=== PATIENT | female | born 1985 | race Caucasian/White ===

== ENCOUNTER 2021-03-04 09:50 | Emergency (ER) | payer OTHER, SELFPAY ==
[2021-03-04 09:58] VITALS: BP 133/96; PULSE 101; RESP 16; TEMP 36.4; O2SAT 99
--- NOTE | 2021-03-04 10:05 | ED.GENADULT ---
HPI - General Adult General Chief complaint: Upper Respiratory Infection Stated complaint: ear pain Time Seen by Provider: 03/04/21 10:05 Source: patient and RN notes reviewed Mode of arrival: ambulatory Limitations: no limitations History of Present Illness HPI narrative: 36-year-old female presents with complaints of sore throat and bilateral otalgia for the past 3-4 days. Jacklyn reports increasing symptoms daily. Sudafed, nose spray, and Tylenol taken last this morning with little relief. No high fevers, drooling, neck or throat swelling. Pain is bilateral. Hurts to swallow. No known exacerbation factors. No rhinorrhea. Nasal congestion. No voice change. No nausea, vomiting, or abdominal pain. Tolerating liquids well. Denies dyspnea, difficulty swallowing, jaw pain, dental pain, facial pain, foreign body sensation, tinnitus, dizziness, and rash. Remains active. The patient reports she was diagnosed with COVID-19 in March 2020. The patient reports she is not waiting for the results of a COVID-19 lab test. The patient reports she does not have chills, weakness, or fatigue. The patient reports she does not have a new or worsening cough. Denies chest pain. The patient reports she does not have any loss of taste or smell, and diarrhea. Denies recent traveling. Denies concerns for COVID-19 or exposures. At this time, the patient is not suspected of having COVID-19. Some parts of this dictation were generated by voice recognition software and may contain typographical and/or grammatical inaccuracies. Related Data Home Medications Medication Instructions Recorded Confirmed chlorpheniramine-pseudoephed tablet PO 03/04/21 [Allergy(pseudoephed-chlorphen)] [id number]-acetaminophen ml 03/04/21 [NyQuil] Allergies Allergy/AdvReac Type Severity Reaction Status Date / Time No Known Allergies Allergy Verified 03/05/21 09:53 Review of Systems Review of Systems: Narrative: CONSTITUTIONAL: Denies fever, chills, sweats. EYES: Denies visual changes, redness, discharge. ENT: Denies rhinorrhea. Complains of congestion, sore throat, bilateral otalgia. CARDIOVASCULAR: Denies chest pain, palpitations, edema. RESPIRATORY: Denies dyspnea, wheezing, cough. GASTROINTESTINAL: Denies abdominal pain, nausea, vomiting, diarrhea. SKIN: Denies rash or itching. MUSCULOSKELETAL: Denies acute back pain, joint pain, or myalgia. NEUROLOGIC: Denies numbness or focal weakness. PSYCHIATRIC: Denies anxiety or depression. All systems reviewed & are unremarkable except as noted in HPI and below. [facility] Past Medical History Medical History BMI 20.0-20.9, adult Diabetes Scar tissue Surgical History Surgical History History of cholecystectomy Family History Family History Father Acute myocardial infarction Mother Breast cancer Lymphoma Sibling No problems noted. Other Diabetes mellitus Social History Social History (Updated 03/10/21 @ 02:06 by RUTHIE Lizarraga) Smoking status: Never smoker Tobacco type: cigarettes Second hand tobacco smoke exposure: Yes Alcohol intake: current Substance use: never Substance use type: does not use Living arrangements: with family Occupation/Education: occupation Additional occupation/education comments: [employer] Gender identity (if verbalized by the patient): Female Sexual Orientation (if Verbalized by the Patient): Straight or Heterosexual Comments At time of signature, agree with the nurse past medical, surgical, social, and family history. There is no relevant family history pertinent to the presenting complaint. Exam Narrative: Exam Narrative: GENERAL: This is a well-nourished, well-developed patient, in no apparent distress. Speaks in full senten
== END 2021-03-04 10:46 | disposition home or self-care (01) ==
PROVIDERS: Emergency Provider Nurse Practitioner Family; PCP Family Medicine
DX: J02.9 Acute pharyngitis, unspecified (principal); H92.02 Otalgia, left ear; J35.8 Other chronic diseases of tonsils and adenoids; E11.9 Type 2 diabetes mellitus without complications
CPT/HCPCS: 87081; 87880; 99213; G0463

== ENCOUNTER 2021-04-28 17:26 | Emergency (ER) | payer OTHER, SELFPAY ==
[2021-04-28 17:37] VITALS: BP 140/110; PULSE 111; RESP 16; TEMP 36.4; O2SAT 99
== END 2021-04-28 17:55 | disposition left against medical advice (07) ==
PROVIDERS: Emergency Provider Nurse Practitioner; PCP Family Medicine
DX: Z53.21 Procedure and treatment not carried out due to patient leaving prior to being seen by health care provider (principal)
CPT/HCPCS: 99199

== ENCOUNTER 2021-04-28 18:16 | Emergency (ER) | payer OTHER, SELFPAY ==
--- NOTE | ~2021-04-28 | XR_ITS ---
EXAMINATION: XR chest 2V DATE: 04/28/2021 18:45 INDICATION: Chest tightness. Shortness of breath. Palpitations. TECHNIQUE: Frontal and lateral views of the chest were obtained. COMPARISON: None. FINDINGS: The chest demonstrates clear lungs without pneumonia, pleural effusion, or pneumothorax. Th e heart size is normal. Surgical clips in the right upper quadrant are likely from cholecystectomy. IMPRESSION: 1. No acute cardiopulmonary disease. Reviewed, dictated and finalized at location A.
--- NOTE | 2021-04-28 18:22 | ECG_ITS ---
Measurements Intervals Jacobson Rate: 111 P: 63 PA: 136 QRS: 80 QRSD: 89 T: 37 QT: 323 QTc: 439 Interpretive Statements SINUS TACHYCARDIA POSSIBLE LEFT ATRIAL ENLARGEMENT INCOMPLETE RIGHT BUNDLE BRANCH BLOCK BASELINE ARTIFACT- I, III, AVR, AVL, AVF ABNORMAL ECG Electronically Signed On 04-28-2021 19:05:55 CDT by Jerrod Rubio D.O.
[2021-04-28 18:36] LABS: Basophils Absolute Auto 0.1 K/mm3 (0.0-0.1); Basophils Percent Auto 0.4 % (0.2-1.2); Eosinophils Absolute Auto 0.3 K/mm3 (0-0.3); Eosinophils Percent Auto 2.4 % (0-4.4); Hematocrit 40.1 % (37.0-47.0); Hemoglobin 13.2 g/dL (12.0-15.0); Immature Granulocyte Absolute 0.04 K/mm3 (0.00-0.031); Immature Granulocyte Percent A 0.4 % (0-0.5); Lymphocytes Absolute Auto 4.23 K/mm3 (0.9-3.2); Lymphocytes Percent Auto 37.2 % (18.3-44.2); Mean Corpuscular HGB Conc 32.9 g/dl (32-36); Mean Corpuscular Hemoglobin 26.9 pg (26-34); Mean Corpuscular Volume 81.7 fl (80-100); Mean Platelet Volume 8.7 fl (7.4-10.4); Monocytes Absolute Auto 0.8 K/mm3 (0.1-0.6); Monocytes Percent Auto 6.7 % (2.6-8.5); Neutrophils Percent Auto 52.9 % (45.5-73.1); Platelet Count Result 493 k/mm3 (150-375); Red Blood Count 4.91 M/mm3 (4.2-5.4); Red Cell Distribution Width 13.1 % (11.5-14.5); White Blood Count 11.4 K/mm3 (4.5-10.0)
[2021-04-28 18:46] LABS: Anion Gap 16 mmol/L (8-16); Blood Urea Nitrogen 25 mg/dL (7-17); Calcium 9.9 mg/dL (8.4-10.2); Carbon Dioxide 21 mmol/L (22-30); Chloride 100 mmol/L (98-107); Estimated Glomerular Filt Rate > 60; Glucose 192 mg/dL (65-110); Potassium 3.9 mmol/L (3.4-5.0); Sodium 137 mmol/L (137-145)
[2021-04-28 18:47] LABS: Prothrombin Time 13.1 Seconds (11.1-14.7)
[2021-04-28 18:48] VITALS: BP 151/99; PULSE 109; RESP 16; TEMP 36.5; O2SAT 100
[2021-04-28 18:48] LABS: Partial Thromboplastin Time 30.1 SECONDS (22.3-36.8)
[2021-04-28 18:58] LABS: Troponin I < 0.012 ng/mL (0.000-0.034)
--- NOTE | 2021-04-28 20:29 | PC.NURSE ---
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
== END 2021-04-28 20:38 | disposition left against medical advice (07) ==
LOC: ANHED 20:35
PROVIDERS: Emergency Provider Emergency Medicine; PCP Family Medicine
DX: R00.2 Palpitations (principal)
CPT/HCPCS: 36415; 71046; 80048; 84484; 85025; 85610; 85730; 93005; 99199

== ENCOUNTER 2021-05-06 13:21 | Outpatient (CLI) | payer OTHER, SELFPAY ==
--- NOTE | 2021-05-11 16:29 | WPDHOLTEREM ---
Holter/Event Monitor Holter/Event Monitor Date of procedure: 05/06/21 Holter/Event Procedure: 24 Hr Holter Monitor Indications: Palpitations Conclusion: 1. 24 hour holter monitor on 05/06/21. 2. Underlying rhythm is sinus rhythm with sinus arrhythmia. HR range 53-140 bpm; average HR 93 bpm. 3. No premature supraventricular complexes. No supraventricular tachycardia. 4. No premature ventricular complexes. No ventricular tachycardia. 5. No sinoatrial or atrioventricular blocks. No significant pauses greater than 2 seconds. 6. No symptoms available for correlation.
== END 2021-05-06 13:22 | disposition home or self-care (01) ==
LOC: ANHCARD 13:22
PROVIDERS: PCP Family Medicine; Visit Provider Nurse Practitioner Family
DX: R00.2 Palpitations (principal)
CPT/HCPCS: 93225; 93226

== ENCOUNTER 2022-04-25 07:22 | Emergency (ER) | payer OTHER, SELFPAY ==
--- NOTE | ~2022-04-25 | XR_ITS ---
EXAMINATION: XR ankle LT min 3V DATE: 04/25/2022 07:57 INDICATION: Lateral left ankle pain post twisting injury TECHNIQUE: Anteroposterior, oblique, mortise, and lateral views of the left ankle were obtained. COMPARISON: None. FINDINGS: Bone alignment is normal. On the lateral projection there is a subtle small amorphous calcific densit y dorsal to the neck of the talus which could represent a distracted flake-like avulsion fracture. No other lesions suspicious for fracture identified. Joint spaces appear relatively preserved. No ankle joint effusion. IMPRESSION: 1. Likely small flake like avulsion fracture fragment arising from the dorsal neck of the talus. Reviewed, dictated and finalized at location A. IMPRESSION: 1. Likely small flake like avulsion fracture fragment arising from the dorsal n karoline of the talus.
[2022-04-25 07:23] VITALS: BP 142/90; PULSE 99; RESP 18; TEMP 36.3; O2SAT 100
--- NOTE | 2022-04-25 07:56 | ED.LOWEXIN ---
HPI - Extremity Injury (Lower) General Chief Complaint: Extremity Injury, Lower Stated Complaint: left ankle pain x 1 week Time Seen by Provider: 04/25/22 07:38 History of Present Illness HPI Narrative: Pt rolled left ankle about 9 days ago. Pt says it continues to swell up especially after being up on it during the day and she just wants to make sure it isn't broken. Related Data Allergies Allergy/AdvReac Type Severity Reaction Status Date / Time dapagliflozin [From [facility]] AdvReac Mild yeast Verified 04/25/22 07:22 infections Review of Systems Review of Systems: All systems reviewed & are unremarkable except as noted in HPI and below PMFSH Past Medical History Medical History BMI 20.0-20.9, adult BMI 21.0-21.9, adult COVID-19 Diabetes Scar tissue Surgical History Surgical History History of cholecystectomy Family History Family History Father Acute myocardial infarction Mother Breast cancer Lymphoma COVID-19 Sibling No problems noted. Other Diabetes mellitus Social History Social History Smoking status: Never smoker Second hand tobacco smoke exposure: Yes Alcohol intake: current Drinks per week: 0 Substance use: never Substance use type: does not use Additional living arrangements comments: Additional occupation/education comments: [employer] Gender identity (if verbalized by the patient): Female Sexual Orientation (if Verbalized by the Patient): Straight or Heterosexual Spiritual care concerns: No Agree to blood products: Yes Exam Const: General: healthy appearing and no acute distress Nutritional Appearance: well nourished Orientation/consciousness: patient oriented x3 Limitations: no limitations HENMT: Head: normal to inspection Skin: General skin exam: normal color Rashes: no rashes Neuro: General: patient oriented x3 and moves all extremities Extrem: Other: swlling and mild tenderness over lateral malleolus no proximal fibula or base of 5th MT pain Psych: Mental Status: mental status grossly normal Affect: normal affect Attitude: cooperative Course Vital Signs Vital signs: Vital Signs Temperature 97.4 F L 04/25/22 07:23 Pulse Rate 99 04/25/22 07:23 Respiratory Rate 18 04/25/22 07:23 Blood Pressure 142/90 H 04/25/22 07:23 Pulse Oximetry 100 04/25/22 07:23 Oxygen Delivery Room Air 04/25/22 07:23 Temperature 97.4 F L 04/25/22 07:23 Pulse Rate 89 04/25/22 09:00 Respiratory Rate 18 04/25/22 09:00 Blood Pressure 133/90 04/25/22 09:00 Pulse Oximetry 100 04/25/22 09:00 Oxygen Delivery Room Air 04/25/22 07:23 Discharge Plan Discharge Clinical Impression: Avulsion fracture of ankle Patient Disposition: Home, Self-Care Condition: Stable Instructions: Antibiotic Form, Ankle Fracture (DC), Ankle Sprain (DC) Prescriptions: No Action Januvia 50 mg tablet 50 mg PO DAILY Qty: 30 3RF fluconazole [Diflucan] 150 mg tablet 150 mg PO ONCE Qty: 2 2RF Rx Instructions: as a single dose hydroxyzine HCl 10 mg tablet 10 mg PO TID PRN (Reason: anxiety) Qty: 20 0RF metformin 500 mg tablet extended release 24 hr See Rx Instructions .ROUTE .COMPLEX Qty: 120 3RF Dose Instruction: TAKE 2 TABLETS BY MOUTH TWICE DAILY Rx Instructions: TAKE 2 TABLETS BY MOUTH TWICE DAILY omeprazole 40 mg capsule,delayed release(DR/EC) 40 mg PO DAILY Qty: 30 3RF Follow-up/Referrals: Roshan Templeton MD [Physician] - Butch Segundo MD [Primary Care Provider] - Stand Alone Forms: Work/School Release IP
[2022-04-25 08:33] VITALS: BP 139/96; PULSE 78; RESP 18; O2SAT 99
[2022-04-25 09:00] VITALS: BP 133/90; PULSE 89; RESP 18; O2SAT 100
== END 2022-04-25 09:00 | disposition home or self-care (01) ==
PROVIDERS: Emergency Provider Emergency Medicine; PCP Family Medicine
DX: S92.112A Displaced fracture of neck of left talus, initial encounter for closed fracture (principal); E11.9 Type 2 diabetes mellitus without complications; Z86.16 Personal history of COVID-19; X50.0XXA Overexertion from strenuous movement or load, initial encounter
CPT/HCPCS: 29515; 73610; 99284

== ENCOUNTER 2023-11-09 15:04 | Outpatient (CLI) | payer OTHER, SELFPAY ==
[2023-11-09 15:25] LABS: Basophils Absolute Auto 0.1 K/mm3 (0.0-0.1); Basophils Percent Auto 0.7 % (0.2-1.2); Eosinophils Absolute Auto 0.5 K/mm3 (0-0.3); Eosinophils Percent Auto 6.8 % (0-4.4); Hematocrit 34.1 % (37.0-47.0); Hemoglobin 10.2 g/dL (12.0-15.0); Immature Granulocyte Absolute 0.03 K/mm3 (0.00-0.031); Immature Granulocyte Percent A 0.4 % (0-0.5); Lymphocytes Absolute Auto 2.65 K/mm3 (0.9-3.2); Lymphocytes Percent Auto 34.8 % (18.3-44.2); Mean Corpuscular HGB Conc 29.9 g/dl (32-36); Mean Corpuscular Volume 73.7 fl (80-100); Mean Platelet Volume 8.6 fl (7.4-10.4); Monocytes Absolute Auto 0.5 K/mm3 (0.1-0.6); Neutrophils Absolute Auto 3.9 K/mm3 (1.3-6.7); Neutrophils Percent Auto 51.3 % (45.5-73.1); Platelet Count Result 550 k/mm3 (150-375); Red Blood Count 4.63 M/mm3 (4.2-5.4); Red Cell Distribution Width 16.2 % (11.5-14.5); White Blood Count 7.6 K/mm3 (4.5-10.0)
[2023-11-09 15:30] LABS: Anisocytosis 1+; Giant Platelets Present; Hypochromasia 1+; Microcytosis 1+ (NORMAL); Ovalocytes 1+; Platelet Estimate Increased (Adequate); Schistocytes None Seen
[2023-11-09 15:31] LABS: Poikilocytosis 1+
[2023-11-09 16:17] LABS: Erythrocyte Sedimentation Rate 14 mm/hr (0-20)
[2023-11-09 16:36] LABS: Iron 26 ug/dL (37-170)
[2023-11-09 16:41] LABS: Alanine Aminotransferase 17 U/L (6-35); Albumin Level 4.5 g/dL (3.5-5.1); Alkaline Phosphatase 72 U/L (38-126); Anion Gap 13 mmol/L (8-16); Aspartate Amino Transferase 23 U/L (14-36); Bilirubin,Total 0.3 mg/dL (0.2-1.3); Blood Urea Nitrogen 18 mg/dL (7-17); CRP < 0.5 mg/dL (<1.0); Calcium 9.3 mg/dL (8.4-10.2); Carbon Dioxide 19 mmol/L (22-30); Chloride 106 mmol/L (98-107); Estimated Glomerular Filt Rate > 60; Glucose 157 mg/dL (65-110); Potassium 3.6 mmol/L (3.4-5.0); Sodium 138 mmol/L (137-145)
[2023-11-09 16:52] LABS: Percent Iron Saturation 5 % (20-50)
== END 2023-11-09 15:05 | disposition home or self-care (01) ==
LOC: ANHLAB 15:06
PROVIDERS: Nurse Practitioner Family; PCP Family Medicine; Visit Provider Internal Medicine Hematology & Oncology
DX: D47.3 Essential (hemorrhagic) thrombocythemia (principal)
CPT/HCPCS: 36415; 80053; 82728; 83540; 83550; 85025; 85652; 86140

== ENCOUNTER 2024-01-23 16:09 | Outpatient (CLI) | payer OTHER, SELFPAY ==
--- NOTE | ~2024-01-23 | MM_ITS ---
EXAMINATION: MM screening brigida BI w patti HISTORY: Screening TECHNIQUE: Craniocaudal and mediolateral oblique 3-D tomosynthesis images were obtained and synthetic 2-D images were generated. CAD analysis was submitted and interpreted. COMPARISON: No prior mammogram is available for comparison at this institution. BREAST PARENCHYMAL COMPOSITION: Dense: The breasts are heterogeneously dense, which may obscure small masses FINDINGS: There is no evidence of suspicious mass, calcification, or architectural distortion to sugg est malignancy in either breast. There has been no suspicious interval change. IMPRESSION: 1. No mammographic evidence of malignancy. 2. Recommend routine screening mammography in one year. BI-RADS Category 1: Negative Reviewed, dictated and finalized at location B.
== END 2024-01-23 16:10 ==
PROVIDERS: PCP Nurse Practitioner; Visit Provider Nurse Practitioner
DX: Z12.31 Encounter for screening mammogram for malignant neoplasm of breast (principal)
CPT/HCPCS: 77063; 77067

== ENCOUNTER 2024-07-12 15:34 | Outpatient (CLI) | payer OTHER, SELFPAY ==
--- NOTE | ~2024-07-12 | XR_ITS ---
EXAMINATION:XR_CERV2-3V_CR DATE: 07/12/2024 16:21 INDICATION: Neck pain TECHNIQUE: AP, lateral and odontoid views of the cervical spine are provided. COMPARISON: None FINDINGS: Minimal reversal of the normal cervical lordosis. No spondylolisthesis or facet subluxation. Odontoid is intact. Normal atlantoaxial interval. Vertebral body heights are normal. Disc spaces are normal. Cervical facet and uncovertebral joints are unremarkable. Prevertebral soft tissues are normal. IMPRESSION: 1. Slight reversal of the normal cervical lordosis which could be positional or due to muscle spasm. Reviewed, dictated and finalized at location B. L PRODUCTS VIEWER
--- NOTE | ~2024-07-12 | XR_ITS ---
EXAMINATION: XR shoulder RT min 2V DATE: 07/12/2024 16:21 INDICATION: Radiculopathy to the right upper extremity TECHNIQUE: AP internally and externally rotated, AP oblique externally rotated and transscapular Y vi ews of the right shoulder were obtained. COMPARISON: None FINDINGS: 4 mm cephalad subluxation of the head of the right clavicle relative to the acromion without evident widening of the acromioclavicular joint space or the coracoclavicular interval. No fracture. Glenohum eral joint space is normal. Acromioclavicular joint space is normal. Soft tissues are unremarkable. V isualized portion of the lungs are clear. IMPRESSION: 4 mm cephalad subluxation of the head of the right clavicle relative to the acromion which could be d ue to physiologic laxity or age indeterminate acromioclavicular joint separation. There is however no widening of the acromioclavicular joint space or widening of the coracoclavicular interval to more s pecifically suggest the latter. Reviewed, dictated and finalized at location B. OR CLINICAL RESEARCH SCIENTIST IMPRESSION: 4 mm cephalad subluxation of the head of the right clavicle relative to the acr omion which could be due to physiologic laxity or age indeterminate acromioclav icular joint separation. There is however no widening of the acromioclavicular joint space or widening of the coracoclavicular interval to more specifically s uggest the latter.
--- NOTE | ~2024-07-12 | XR_ITS ---
HISTORY: M54.10 - Radiculopathy, site unspecified COMPARISON: None TECHNIQUE: 2 views of the right wrist were performed. FINDINGS: No acute fracture is identified. The carpal arcs are intact. Mild radiocarpal joint space narrowing with sclerosis of the distal radius is present. The remaining visualized joint spaces are otherwise preserved. Bone mineralization is age-appropriate. No significant soft tissue swelling is noted. No radiopaque foreign body is identified. IMPRESSION: Trace degenerative disease without acute fracture Reviewed, dictated and finalized at location A. TOUCH UP PAINTER
== END 2024-07-12 15:35 | disposition home or self-care (01) ==
PROVIDERS: PCP Family Medicine; Visit Provider Nurse Practitioner Adult Health
DX: M54.10 Radiculopathy, site unspecified (principal)
CPT/HCPCS: 72040; 73030; 73100

== ENCOUNTER 2024-07-17 15:11 | Outpatient (CLI) | payer OTHER, SELFPAY ==
--- NOTE | ~2024-07-17 | XR_ITS ---
EXAMINATION: XR thoracic spine 3V DATE: 07/17/2024 15:29 INDICATION: Dorsalgia, unspecified. TECHNIQUE: 3 views of the thoracic spine including standing views were obtained. COMPARISON: None. FINDINGS: There is 4 degrees dextrocurvature of thoracic spine. Vertebral body heights and interverte bral disc heights are normal. IMPRESSION: 1. No etiology for the patient's symptoms. Reviewed, dictated and finalized at location A. R REPAIRER
--- NOTE | ~2024-07-17 | XR_ITS ---
EXAMINATION: XR lumbar spine min 4V DATE: 07/17/2024 15:29 INDICATION: Dorsalgia, unspecified. TECHNIQUE: 3 views of lumbar spine including standing views were obtained. COMPARISON: None. FINDINGS: Alignment is normal. Vertebral body heights and intervertebral disc heights are normal. The re are endplate osteophytes at multiple levels. There is multilevel mild facet joint osteoarthritis. Surgical clips in the right upper quadrant are likely from cholecystectomy. IMPRESSION: 1. Mild lumbar spondylosis. Reviewed, dictated and finalized at location A. PUSHER IMPRESSION: 1. Mild lumbar spondylosis.
== END 2024-07-17 15:12 | disposition home or self-care (01) ==
LOC: MICIMG 15:11
PROVIDERS: PCP Family Medicine; Visit Provider Nurse Practitioner Family
DX: M43.06 Spondylolysis, lumbar region (principal)
CPT/HCPCS: 72072; 72110

== ENCOUNTER 2024-08-25 08:28 | Outpatient (CLI) | payer OTHER, SELFPAY ==
--- NOTE | ~2024-08-25 | MR_ITS ---
MRI of the right shoulder Technique: Axial proton-density fat-sat images, coronal proton density fat-sat and T2 fat-sat images, and sagittal T1-weighted and T2 fat-sat images were acquired. Clinical History: Injury Findings: There is minimal AC joint degenerative change. Coracoclavicular, coracoacromial, and coraco humeral ligaments are intact. Supraspinatus and infraspinatus tendons are intact, without partial or full-thickness tear. Subscapul amanda tendon is intact. Tendon of long head of the biceps is intact. No definite labral tear seen. Inferior glenohumeral ligament is intact. No degenerative change or effusion of the glenohumeral join t. No fluid distention of the subacromial/subdeltoid bursa. No muscle atrophy or edema. Impression: No significant abnormality seen. Reviewed, dictated and finalized at [facility]. 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
== END 2024-08-25 08:29 | disposition home or self-care (01) ==
PROVIDERS: PCP Family Medicine; Visit Provider Nurse Practitioner Family
DX: R93.6 Abnormal findings on diagnostic imaging of limbs (principal); V89.2XXA Person injured in unspecified motor-vehicle accident, traffic, initial encounter
CPT/HCPCS: 73221

== ENCOUNTER 2024-10-20 10:07 | Emergency (ER) | payer OTHER, SELFPAY ==
--- OUTSIDE RECORDS SUMMARY | 2024-10-20 10:16 | XMS_ITS | Patient Health Summary ---
Author Organization [facility] [employer] Address [address] [place] [address] Care Team Providers Care Assistant Quality Manager Name Role Phone Jay Metcalf MD Primary Care Provider + Note from [facility] [employer],non-owned Affiliates and Associated Physician Practices is amultiple site organization consisting of ambulatory clinics and hospital sitesin [place], [place], [place] and [place]. This disclosure is being madepursuant to the Care Everywhere program and may not contain all information available regarding this patient. Last updated 18.[facility] [employer] Allergies No known active allergies Medications * Be aware that medications may not be up to date on this document. Alwaysverify current medications with the patient. * METFORMIN HCL ER, MOD, PO Social History Tobacco Use Types Packs/Day Years Used Date Smoking Tobacco: Never Smokeless Tobacco: Never Tobacco Cessation:Counseling Given: No Alcohol Use Standard Drinks/Week Comments No 0 (1 standard drink = 0.6 oz pur e alcohol) Sex and Gender Information Value Date Recorded Sex Assigned at Not on file Gender Identity Not on file Sexual Orientation Not on file Last Filed Vital Signs Vital Sign Reading Time Taken Comments Blood Pressure 112/68 10/29/2017 11:59 AM ADVICE CLERK Pulse 98 10/29/2017 11:59 AM ADVICE CLERK Temperature 36.6 C (97.8 F) 10/29/2017 11:59 AM ADVICE CLERK Respiratory Rate 20 10/29/2017 11:59 AM ADVICE CLERK Oxygen Saturation 99% 10/29/2017 11:59 AM ADVICE CLERK Inhaled Oxygen Concentration - - Weight 61.2 kg (135 lb) 10/29/2017 11:59 AM ADVICE CLERK Height 165.1 cm (5' 5 ) 10/29/2017 11:59 AM ADVICE CLERK Body Mass Index 22.47 10/29/2017 11:59 AM ADVICE CLERK Procedures * DERMATOPATHOLOGY(Performed 09/20/2022) Results * DERMATOPATHOLOGY (09/20/2022 12:00 AM ADVICE CLERK) Case Report Dermatopathology Report Case: [id number] Authorizing Provider: Star Crump MD Collected: 09/20/2022 12:00 AM Ordering Location: [facility] Received: 09/23/2022 07:29 AM Pathologist: Oralia Treviño MD Specimen: Skin, left mid back 1:33 PM [facility] Final Diagnosis Specimen A. SKIN, left mid back: COMPOUND MELANOCYTIC NEVUS, IRRITATED (D22.5) PRESENT AT MARGIN 1:33 PM ADVICE CLERK DERMATOPATHOLOGY LABORATORY Clinical History Irr. Nevus Check margins 1:33 PM ADVICE CLERK DERMATOPATHOLOGY LABORATORY Gross Description Specimen A: Received is one formalin filled container labeled with the patients name and designated left mid back. The specimen consists of a shave removal measuring 7x6x1 mm. Jar 0. 1:33 PM [facility] Microscopic Description Specimen A. SKIN, left mid back: There is melanin pigment in the stratum corneum. There are nests of melanocytes at the dermal-epidermal junction and within the dermis. This lesion is present at the margin of the specimen. 1:33 PM [facility] Disclaimer An external and internal positive and negative controls are appropriate for the histochemical, immunohistochemical and immunofluorescence stain(s) in this case (if any), except where stated explicitly. The performance characteristics of the stain(s) cited in this report were developed and its performance characteristic determined by the Dermatopathology Laboratory at [facility], directed by Dr. Amanuel Elena. These tests need not be, and therefore are not, approved by the [place] Food and Drug Administration. The tests are used for clinical purposes. Billing Codes Specimen Charges Stain Charges 37747 1 1:33 PM [facility] Embedded Images 1:33 PM [facility] Pathology/Cytolog y TISSUE SPECIMEN FROM SKIN / Unknown 09/20/2022 09/23/2022 7:29 AM ADVICE CLERK Star Crump MD LAB - PATHOLOGY/CYTO LOGY ORDERABLES DERMATOPATHOLOGY LABORATORY [facility] - Department of Dermatology [facility] Specialized Medicine [address] [place] [address], [address] [phone] Care Teams Assistant Quality Manager Relationship Specialty Start Date End Date Jay Metcalf MD [address] [address] PCP - General Family Medicine 10/29/17
--- OUTSIDE RECORDS SUMMARY | 2024-10-20 10:16 | XMS_ITS | Referral Summary ---
Author Organization [facility] [employer] Address [address] [place] [address] Care Team Providers Care Classroom Technology Coach Name Role Phone Jay Metcalf MD Primary Care Provider + Source Comments [facility] [employer],non-owned Affiliates and Associated Physician Practices is amultiple site organization consisting of ambulatory clinics and hospital sitesin [place], [place], [place] and [place]. This disclosure is being madepursuant to the Care Everywhere program and may not contain all information available regarding this patient. Last updated 18.[employer] Allergies No known active allergies Medications * Be aware that medications may not be up to date on this document. Alwaysverify current medications with the patient. Medication Sig Dispensed Refills Start Date End Date Status METFORMIN HCL ER, MOD, PO Active Social History Tobacco Use Types Packs/Day Years [...] Comments Blood Pressure 112/68 10/29/2017 11:59 AM MAIL SORTER AND DELIVERY Pulse 98 10/29/2017 11:59 AM MAIL SORTER AND DELIVERY Temperature 36.6 C (97.8 F) 10/29/2017 11:59 AM MAIL SORTER AND DELIVERY Respiratory Rate 20 10/29/2017 11:59 AM MAIL SORTER AND DELIVERY Oxygen Saturation 99% 10/29/2017 11:59 AM MAIL SORTER AND DELIVERY Inhaled Oxygen Concentration - - Weight 61.2 kg (135 lb) 10/29/2017 11:59 AM MAIL SORTER AND DELIVERY Height 165.1 cm (5' 5 ) 10/29/2017 11:59 AM MAIL SORTER AND DELIVERY Body Mass Index 22.47 10/29/2017 11:59 AM MAIL SORTER AND DELIVERY Plan of Treatment Not on file Care Teams Classroom Technology Coach Relationship Specialty Start Date End Date Jay Metcalf MD [address] [place] [address] PCP - General Family Medicine 10/29/17
--- OUTSIDE RECORDS SUMMARY | 2024-10-20 10:16 | XMS_ITS | Clinical Summary ---
Author Organization [facility] [employer] Address [address] [place] [address] Care Team Providers Care Lockstitch Waistline Joiner Name Role Phone Jay Metcalf MD Primary Care Provider + Source Comments [facility] [employer],non-owned Affiliates and Associated Physician Practices is amultiple site organization consisting of ambulatory clinics and hospital sitesin [place], [place], [place] and [place]. This disclosure is being madepursuant to the Care Everywhere program and may not contain all information available regarding this patient. Last updated 18.[employer] Allergies No known active allergies Medications * Be aware that medications may not be up to date on this document. Alwaysverify current medications with the patient. Medication Sig Dispensed Refills Start Date End Date Status METFORMIN HCL ER, MOD, PO Active Family History Medical History Relation Name Comments Cancer - Breast Mother Lymphoma Mother Asthma Neg Hx Autoimmune Disease Neg Hx Bipolar Disorder Neg Hx Cancer - Colon Neg Hx Cancer - Other Neg Hx Cancer - Ovarian Neg Hx Cancer - Pancreatic Neg Hx Cancer - Prostate Neg Hx Depression Neg Hx Eczema Neg Hx Hypertension Neg Hx Migraine Neg Hx Osteoporosis Neg Hx Seizures Neg Hx Sudd. <30 Neg Hx Thyroid Disease Neg Hx Ulcerative Colitis Neg Hx Relation Name Status Comments Father Alive Mother Alive Social History Tobacco Use Types Packs/Day Years [...] Comments Blood Pressure 112/68 10/29/2017 11:59 AM PASSENGER VESSEL CHEF Pulse 98 10/29/2017 11:59 AM PASSENGER VESSEL CHEF Temperature 36.6 C (97.8 F) 10/29/2017 11:59 AM PASSENGER VESSEL CHEF Respiratory Rate 20 10/29/2017 11:59 AM PASSENGER VESSEL CHEF Oxygen Saturation 99% 10/29/2017 11:59 AM PASSENGER VESSEL CHEF Inhaled Oxygen Concentration - - Weight 61.2 kg (135 lb) 10/29/2017 11:59 AM PASSENGER VESSEL CHEF Height 165.1 cm (5' 5 ) 10/29/2017 11:59 AM PASSENGER VESSEL CHEF Body Mass Index 22.47 10/29/2017 11:59 AM PASSENGER VESSEL CHEF Plan of Treatment Health Maintenance Due Date Last Done Comments LIPID TESTING 1983 MAMMOGRAM 1983 PAP SMEAR 1983 HIV SCREENING 1998 HEPATITIS C SCREENING 02/16/2001 DTAP/TDAP/TD VACCINES (1 - Tdap) 2002 HEPATITIS B VACCINE (1 of 3 - 19+ 3-dose series) 2002 COVID-19 VACCINE ( - 2023-2 5 season) 2024 INFLUENZA VACCINE (#1) 2024 DEPRESSION SCREENING 08/28/2024 ZOSTER VACCINE (1 of 2) 2033 HIB VACCINE Aged Out No longer eligi ble based on patient's age to complete this topic HPV VACCINE Aged Out No longer eligi ble based on patient's age to complete this topic MENINGOCOCCAL (Group B) VACCINE Aged Out No longer eligible based on patient's age to complete this topic MENINGOCOCCAL VACCINE Aged Out No adonay hammad eligible based on patient's age to complete this topic PNEUMOCOCCAL VACCINE Aged Out No long er eligible based on patient's age to complete this topic Care Teams Lockstitch Waistline Joiner Relationship Specialty Start Date End Date Jay Metcalf MD [address] [facility] [address] [place] [address] PCP - General Family Medicine 10/29/17
--- OUTSIDE RECORDS SUMMARY | 2024-10-20 10:16 | XMS_ITS | Clinical Summary ---
Author Organization [facility] Address [address] [place] [id number] Care Team Providers Care Preparation Supervisor Canning Name Role Phone Butch Segundo MD Primary Care Provider [phone] Allergies No known active allergies Medications metFORMIN (GLUCOPHAGE) 1,000 mg tablet Take 1,000 mg by mouth 2 times daily with meals. Active dapagliflozin propanediol (Farxiga) 10 mg Tablet Take 10 mg by mouth daily. Active ferrous sulfate 325 mg (65 mg iron) tablet Take 325 mg by mouth daily. Active ascorbic dwer-lcwjfsgj-ot n-msm 1,000-1,000 mg Powder Effervescent in Packet Take 1,000 mg by mouth daily. Active MULTIVITAMIN ORAL Take by mouth. Activ e Mounjaro 2.5 mg/0.5 mL Pen Injector INJECT 2.5MG UNDER THE SKIN ONCE A WEEK FOR 4 WEEKS 01/29/20 24 Active cyanocobalamin (VITAMIN B-12) 1,000 mcg/mL Solution Inject 1 mL (1,000 mcg) by intramuscular injection once monthly. 1 mL 3 03/18/20 24 Active Syringe with Needle, Disp, 1 mL 27 x 1/2 Syringe Use to inject 1ml intramuscularly with B12 injection monthly 1 Each 3 03/18/20 24 Active Active Problems Problem Noted Date Diagnosed Date Type 2 diabetes mellitus wit hout complication, with long-term current use of insulin 09/22/2022 Encounters Date Type Department Care Team Description 10/15/2024 External Device Data [facility] ABSTRACTION Provider, Abstract 10/01/2024 External Device Data [facility] ABSTRACTION Provider, Abstract 09/18/2024 External Device Data [facility] ABSTRACTION Provider, Abstract 09/18/2024 External Device Data [facility] ABSTRACTION Provider, Abstract from Last 3 Months Family History Medical History Relation Name Comments No Known Problems Brother Diabetes Father Heart Disease Father Breast Cancer Mother Cancer - Other Mother metastatic Diabetes Mother Relation Name Status Comments Brother Alive Father Alive Mother Alive Social History Tobacco Use Types Packs/Day Years Used Date Smoking Tobacco: Never Smokeless Tobacco: Never Tobacco Cessation:Counseling Given: Not Answered Alcohol Use Standard Drinks/Week Comments Yes 0 (1 standard drink = 0.6 oz pur e alcohol) Socially Comments Unknown Sex and Gender Information Value Date Recorded Sex Assigned at Not on file Legal Sex Female 2:37 PM GRILL CHEF Gender Identity Not on file Sexual Orientation Not on file Last Filed Vital Signs Vital Sign Reading Time Taken Comments Blood Pressure 110/83 02/19/2024 1:56 PM CDT Pulse 94 02/19/2024 1:56 PM CDT Temperature 36.7 C (98 F) 02/19/2024 1:56 PM CDT Respiratory Rate 16 02/19/2024 1:56 PM CDT Oxygen Saturation 98% 02/19/2024 1:56 PM CDT Inhaled Oxygen Concentration - - Weight 54.9 kg (121 lb) 02/19/2024 1:56 PM CDT Height 165.1 cm (5' 5 ) 11/09/2023 2:22 PM CDT Body Mass Index 20.14 11/09/2023 2:22 PM CDT Plan of Treatment Health Maintenance Due Date Last Done Comments PNEUMOCOCCAL VACCINE 0-64 YE ARS (1 of 2 - PCV) 1989 DIABETES ANNUAL FOOT EXAM 2001 DIABETES ANNUAL RETINAL EXAM 2001 DIABETES HBA1C Q 6 MONTHS 2001 DIABETES MICROALBUMIN ANNUAL SCREEN 2001 LDL CHOLESTEROL ANNUAL 2001 DTAP/TDAP/TD VACCINES (1 - Tdap) 2002 HEPATITIS B VACCINES (1 of 3 - 19+ 3-dose series) 2002 CERVICAL CANCER SCREENING 2013 BREAST CANCER SCREENING 2023 INFLUENZA VACCINE (#1) 2024 HPV VACCINES Aged Out No longer eligi ble based on patient's age to complete this topic Insurance [facility] [id number] PPO COVENTRY Care Teams Preparation Supervisor Canning Relationship Specialty Start Date End Date Butch Segundo MD [address] [place] [address] PCP - General Family Practice 10/26/23
--- OUTSIDE RECORDS SUMMARY | 2024-10-20 10:16 | XMS_ITS | Encounter Summary ---
Author Organization [facility] Address [address] [place] [address] Care Team Providers Care Petroleum Terminal Plant Operator Name Role Phone Jay Metcalf MD Primary Care Provider + Encounter Details Date Type Department Care Team (Late st Contact Info) Description 09/23/2022 Lab Requisition [facility] [address] [place] [address] Star Crump MD [address] [place] [address] Social History Tobacco Use Types Packs/Day Years Used Date Smoking Tobacco: Never Smokeless Tobacco: Never Alcohol Use Standard Drinks/Week Comments No 0 (1 standard drink = 0.6 oz pur e alcohol) Sex and Gender Information Value Date Recorded Sex Assigned at Not on file Gender Identity Not on file Sexual Orientation Not on file documented as of this encounter Plan of Treatment Not on file documented as of this encounter Procedures Procedure Name Priority Date/Time Associated Diagnosis Comments DERMATOPATHOLOGY Routine 09/20/2022 12:0 0 AM FAMILY SERVICE WORKER documented in this encounter Results * DERMATOPATHOLOGY (09/20/2022 12:00 AM FAMILY SERVICE WORKER) Case Report Dermatopathology Report Case: [id number] Authorizing Provider: Star Crump MD Collected: 09/20/2022 12:00 AM Ordering Location: [facility] Received: 09/23/2022 07:29 AM Pathologist: Oralia Treviño MD Specimen: Skin, left mid back 1:33 PM FAMILY SERVICE WORKER DERMATOPATHOLOGY LABORATORY Final Diagnosis Specimen A. SKIN, left mid back: COMPOUND MELANOCYTIC NEVUS, IRRITATED (D22.5) PRESENT AT MARGIN 3 1:33 PM [facility] DERMATOPATHOLOGY LABORATORY Clinical History Irr. Nevus Check margins 3 1:33 PM [facility] DERMATOPATHOLOGY LABORATORY Gross Description Specimen A: Received is one formalin filled container labeled with the patients name and designated left mid back. The specimen consists of a shave removal measuring 7x6x1 mm. Jar 0. 3 1:33 PM [facility] DERMATOPATHOLOGY LABORATORY Microscopic Description Specimen A. SKIN, left mid back: There is melanin pigment in the stratum corneum. There are nests of melanocytes at the dermal-epidermal junction and within the dermis. This lesion is present at the margin of the specimen. 3 1:33 PM [facility] DERMATOPATHOLOGY LABORATORY Disclaimer An external and internal positive and negative controls are appropriate for the histochemical, immunohistochemical and immunofluorescence stain(s) in this case (if any), except where stated explicitly. The performance characteristics of the stain(s) cited in this report were developed and its performance characteristic determined by the Dermatopathology Laboratory at [facility], directed by Dr. Amanuel Elena. These tests need not be, and therefore are not, approved by the [place] Food and Drug Administration. The tests are used for clinical purposes. Billing Codes Specimen Charges Stain Charges 37966 1 3 1:33 PM FAMILY SERVICE WORKER DERMATOPATHOLOGY LABORATORY Embedded Images 3 1:33 PM [facility] DERMATOPATHOLOGY LABORATORY Pathology/Cytolog y TISSUE SPECIMEN FROM SKIN / Unknown 09/20/2022 09/23/2022 7:29 AM FAMILY SERVICE WORKER Star Crump MD LAB - PATHOLOGY/CYTO [facility] ORDER[facility] DERMATOPATHOLOGY LABORATORY [facility] - Department of Dermatology [address], [address] [phone] documented in this encounter Visit Diagnoses Not on filedocumented in this encounter Care Teams Petroleum Terminal Plant Operator Relationship Specialty Start Date End Date Jay Metcalf MD NPI: [id number] [place] [phone] PCP - General Family Medicine 10/29/17 documented as of this encounter
[2024-10-20 10:28] VITALS: BP 126/85; PULSE 92; RESP 16; TEMP 36.4; O2SAT 100
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
== END 2024-10-20 11:31 | disposition home or self-care (01) ==
PROVIDERS: Emergency Provider Nurse Practitioner Family; PCP Family Medicine
DX: L71.0 Perioral dermatitis (principal); E11.9 Type 2 diabetes mellitus without complications; Z86.16 Personal history of COVID-19; Z79.4 Long term (current) use of insulin; Z79.84 Long term (current) use of oral hypoglycemic drugs
CPT/HCPCS: 99213; G0463

== ENCOUNTER 2025-01-24 15:33 | Outpatient (CLI) | payer OTHER, SELFPAY ==
--- NOTE | ~2025-01-24 | MM_ITS ---
EXAMINATION: MM screening brigida BI w patti HISTORY: Screening TECHNIQUE: Craniocaudal and mediolateral oblique 3-D tomosynthesis images were obtained and synthetic 2-D images were generated. CAD analysis was submitted and interpreted. COMPARISON: 01/23/2024 BREAST PARENCHYMAL COMPOSITION: Dense: The breasts are heterogeneously dense, which may obscure small masses FINDINGS: There is no evidence of suspicious mass, calcification, or architectural distortion to sugg est malignancy in either breast. There has been no suspicious interval change. IMPRESSION: 1. No mammographic evidence of malignancy. 2. Recommend routine screening mammography in one year. BI-RADS Category 1: Negative Reviewed, dictated and finalized at location A.
== END 2025-01-24 15:34 | disposition home or self-care (01) ==
LOC: MICIMG 15:35
PROVIDERS: PCP Nurse Practitioner; Visit Provider Nurse Practitioner
DX: Z12.31 Encounter for screening mammogram for malignant neoplasm of breast (principal)
CPT/HCPCS: 77063; 77067

== ENCOUNTER 2025-08-19 16:50 | Emergency (ER) | payer OTHER, SELFPAY ==
--- OUTSIDE RECORDS SUMMARY | 2025-08-19 16:51 | XMS_ITS | Clinical Summary ---
Author Organization [facility] [employer] Address [address] [place] [address] Care Team Providers Care Radioisotope Technician Name Role Phone Jay Metcalf MD Primary Care Provider + Source Comments [facility] [employer]non-owned Affiliates and Associated Physician Practices is amultiple site organization consisting of ambulatory clinics and hospital sitesin [place], [place], [place] and [place]. This disclosure is being madepursuant to the Care Everywhere program and may not contain all information available regarding this patient. Last updated [employer] Allergies No known active allergies Medications * Be aware that medications may not be up to date on this document. Alwaysverify current medications with the patient. METFORMIN HCL ER, MOD, PO Active Family [...] drink = 0.6 oz pur e alcohol) Comments No Sex and Gender Information Value Date Recorded Sex Assigned at Not on file Legal Sex Female 11:24 AM CURING SUPERVISOR Gender Identity Not on file Sexual Orientation Not on file Last Filed Vital Signs Vital Sign Reading Time Taken Comments Blood Pressure 112/68 10/29/2017 11:59 AM CURING SUPERVISOR Pulse 98 10/29/2017 11:59 AM CURING SUPERVISOR Temperature 36.6 C (97.8 F) 10/29/2017 11:59 AM CURING SUPERVISOR Respiratory Rate 20 10/29/2017 11:59 AM CURING SUPERVISOR Oxygen Saturation 99% 10/29/2017 11:59 AM CURING SUPERVISOR Inhaled Oxygen Concentration - - Weight 61.2 kg (135 lb) 10/29/2017 11:59 AM CURING SUPERVISOR Height 165.1 cm (5' 5) 10/29/2017 11:59 AM CURING SUPERVISOR Body Mass Index 22.47 10/29/2017 11:59 AM CURING SUPERVISOR Plan of Treatment Health Maintenance Due Date Last Done Comments LIPID TESTING 1983 MAMMOGRAM 1983 HIV SCREENING 1998 HEPATITIS C SCREENING 02/16/2001 DTAP/TDAP/TD VACCINES (1 - Tdap) 2002 HEPATITIS B VACCINE (1 of 3 - 19+ 3-dose series) 2002 PAP SMEAR 02/22/2004 HPV VACCINE (1 - 3-dose SCDM series) 2010 DEPRESSION SCREENING 08/28/2024 COVID-19 VACCINE (1 - 2024-2 6 season) 2025 INFLUENZA VACCINE (#1) 2025 ZOSTER VACCINE (1 of 2) 2033 HIB VACCINE Aged Out No longer eligi ble based on patient's age to complete this topic MENINGOCOCCAL (Group B) VACC INE SHARED DECISION-MAKING Aged Out No longer eligibl e based on patient's age to complete this topic MENINGOCOCCAL GROUPS A/C/Y/W VACCINE Aged Out No longer eligible b ased on patient's age to complete this topic PNEUMOCOCCAL VACCINE Aged Out No long er eligible based on patient's age to complete this topic Insurance [employer] AETNA A[employer] Care Teams Radioisotope Technician Relationship Specialty Start Date End Date Jay Metcalf MD [address] [place] [id number] PCP - General Family Medicine 10/29/17
--- OUTSIDE RECORDS SUMMARY | 2025-08-19 16:51 | XMS_ITS | Encounter Summary ---
Author Organization [facility] Address [address] [place] [address] Care Team Providers Care Line Clearance Foreman Name Role Phone Jay Metcalf MD Primary Care Provider + Encounter Details Date Type Department Care Team (Late st Contact Info) Description 09/23/2022 Lab Requisition [facility] DermPath Lab [address] [place] [address] Star Crump MD [address] [place] [address] Social History Tobacco Use Types Packs/Day Years Used Date Smoking Tobacco: Never Smokeless Tobacco: Never Alcohol Use Standard Drinks/Week Comments No 0 (1 standard drink = 0.6 oz pur e alcohol) Comments No Sex and Gender Information Value Date Recorded Sex Assigned at Not on file Legal Sex Female 11:24 AM TUBE DRAWING SUPERVISOR Gender Identity Not on file Sexual Orientation Not on file documented as of this encounter Plan of Treatment Not on file documented as of this encounter Procedures Procedure Name Priority Date/Time Associated Diagnosis Comments DERMATOPATHOLOGY Routine 09/20/2022 12:0 0 AM TUBE DRAWING SUPERVISOR documented in this encounter Results * DERMATOPATHOLOGY (09/20/2022 12:00 AM TUBE DRAWING SUPERVISOR) Case Report Dermatopathology Report Case: [id number] Authorizing Provider: Star Crump MD Collected: 09/20/2022 12:00 AM Ordering Location: [facility] DermPath Lab Received: 09/23/2022 07:29 AM Pathologist: Oralia Treviño MD Specimen: Skin, left mid back 1:33 PM TUBE DRAWING SUPERVISOR DERMATOPATHOLOGY LABORATORY Final Diagnosis Specimen A. SKIN, left mid back: COMPOUND MELANOCYTIC NEVUS, IRRITATED (D22.5) PRESENT AT MARGIN 3 1:33 PM [facility] DERMATOPATHOLOGY LABORATORY at [address] TUBE DRAWING SUPERVISOR Clinical History Irr. Nevus Check margins 3 1:33 PM [facility] DERMATOPATHOLOGY LABORATORY Gross Description Specimen A: Received is one formalin filled container labeled with the patients name and designated left mid back. The specimen consists of a shave removal measuring 7x6x1 mm. Jar 0. 3 1:33 PM [facility] DERMATOPATHOLOGY LABORATORY Microscopic Description Specimen A. SKIN, left mid back: There is melanin pigment in the stratum corneum. There are nests of melanocytes at the dermal-epidermal junction and within the dermis. This lesion is present at the margin of the specimen. 3 1:33 PM [facility] DERMATOPATHOLOGY LABORATORY Disclaimer An external and internal positive and negative controls are appropriate for the histochemical, immunohistochemical and immunofluorescence stain(s) in this case (if any), except where stated explicitly. The performance characteristics of the stain(s) cited in this report were developed and its performance characteristic determined by the Dermatopathology Laboratory at [facility], directed by Dr. Amanuel Elena. These tests need not be, and therefore are not, approved by the [place] Food and Drug Administration. The tests are used for clinical purposes. Billing Codes Specimen Charges Stain Charges 20594 1 3 1:33 PM [facility] DERMATOPATHOLOGY LABORATORY Embedded Images 3 1:33 PM [facility] DERMATOPATHOLOGY LABORATORY Pathology/Cytolog y TISSUE SPECIMEN FROM SKIN / Unknown 09/20/2022 09/23/2022 7:29 AM TUBE DRAWING SUPERVISOR us Star Crump MD LAB - PATHOLOGY/CYTOLOGY ORDERAB LES Final Result DERMATOPATHOLOGY LABORATORY [facility] - Department of Dermatology [address], [address] [phone] documented in this encounter Visit Diagnoses Not on filedocumented in this encounter Care Teams Line Clearance Foreman Relationship Specialty Start Date End Date Jay Metcalf MD [address] [address] PCP - General Family Medicine 10/29/17 documented as of this encounter
[2025-08-19 17:01] VITALS: BP 155/98; PULSE 95; RESP 16; TEMP 36.8; O2SAT 100
--- OUTSIDE RECORDS SUMMARY | 2025-08-19 19:14 | XMS_ITS | Encounter Summary ---
Author Organization [facility] Address [address] [place] [address] Care Team Providers Care Husbandry Person Name Role Phone Jay Metcalf MD Primary Care Provider + Encounter Details Date Type Department Care Team (Late st Contact Info) Description 09/23/2022 Lab Requisition [facility] DermPath Lab [address] [place] [address] Star Crump MD [address] [place] [address] Social History Tobacco Use Types Packs/Day Years Used Date Smoking Tobacco: Never Smokeless Tobacco: Never Alcohol Use Standard Drinks/Week Comments No 0 (1 standard drink = 0.6 oz pur e alcohol) Comments No Sex and Gender Information Value Date Recorded Sex Assigned at Not on file Legal Sex Female 11:24 AM BROOM HANDLE DIPPER Gender Identity Not on file Sexual Orientation Not on file documented as of this encounter Plan of Treatment Not on file documented as of this encounter Procedures Procedure Name Priority Date/Time Associated Diagnosis Comments DERMATOPATHOLOGY Routine 09/20/2022 12:0 0 AM BROOM HANDLE DIPPER documented in this encounter Results * DERMATOPATHOLOGY (09/20/2022 12:00 AM BROOM HANDLE DIPPER) Case Report Dermatopathology Report Case: [id number] Authorizing Provider: Star Crump MD Collected: 09/20/2022 12:00 AM Ordering Location: [facility] DermPath Lab Received: 09/23/2022 07:29 AM Pathologist: Oralia Treviño MD Specimen: Skin, left mid back 1:33 PM BROOM HANDLE DIPPER DERMATOPATHOLOGY LABORATORY Final Diagnosis Specimen A. SKIN, left mid back: COMPOUND MELANOCYTIC NEVUS, IRRITATED (D22.5) PRESENT AT MARGIN 3 1:33 PM [facility] DERMATOPATHOLOGY LABORATORY at [address] BROOM HANDLE DIPPER Clinical History Irr. Nevus Check margins 3 1:33 PM [facility] DERMATOPATHOLOGY LABORATORY Gross Description Specimen A: Received is one formalin filled container labeled with the patients name and designated left mid back. The specimen consists of a shave removal measuring 7x6x1 mm. Jar 0. 3 1:33 PM [facility] DERMATOPATHOLOGY LABORATORY Microscopic Description Specimen A. SKIN, left mid back: There is melanin pigment in the stratum corneum. There are nests of melanocytes at the dermal-epidermal junction and within the dermis. This lesion is present at the margin of the specimen. 3 1:33 PM [facility] DERMATOPATHOLOGY LABORATORY Disclaimer An external and internal positive and negative controls are appropriate for the histochemical, immunohistochemical and immunofluorescence stain(s) in this case (if any), except where stated explicitly. The performance characteristics of the stain(s) cited in this report were developed and its performance characteristic determined by the Dermatopathology Laboratory at [facility], directed by Dr. Amanuel Elena. These tests need not be, and therefore are not, approved by the [place] Food and Drug Administration. The tests are used for clinical purposes. Billing Codes Specimen Charges Stain Charges 48633 1 3 1:33 PM [facility] DERMATOPATHOLOGY LABORATORY Embedded Images 3 1:33 PM [facility] DERMATOPATHOLOGY LABORATORY Pathology/Cytolog y TISSUE SPECIMEN FROM SKIN / Unknown 09/20/2022 09/23/2022 7:29 AM BROOM HANDLE DIPPER us Star Crupm MD LAB - PATHOLOGY/CYTOLOGY ORDERAB LES Final Result DERMATOPATHOLOGY LABORATORY [facility] - Department of Dermatology [address], [address] [phone] documented in this encounter Visit Diagnoses Not on filedocumented in this encounter Care Teams Husbandry Person Relationship Specialty Start Date End Date Jay Metcalf MD [address] [address] PCP - General Family Medicine 10/29/17 documented as of this encounter
--- OUTSIDE RECORDS SUMMARY | 2025-08-19 19:14 | XMS_ITS | Clinical Summary ---
Author Organization [facility] Address [address] [place] [address] Care Team Providers Care Rn Staff Name Role Phone Jay Metcalf MD Primary Care Provider + Source Comments [facility],non-owned Affiliates and Associated Physician Practices is amultiple site organization consisting of ambulatory clinics and hospital sitesin [place], [place], [place] and [place]. This disclosure is being madepursuant to the Care Everywhere program and may not contain all information available regarding this patient. Last updated 18.[employer] [facility] Allergies No known active allergies Medications * [...] on file Legal Sex Female 11:24 AM CONCRETER Gender Identity Not on file Sexual Orientation Not on file Last Filed Vital Signs Vital Sign Reading Time Taken Comments Blood Pressure 112/68 10/29/2017 11:59 AM CONCRETER Pulse 98 10/29/2017 11:59 AM CONCRETER Temperature 36.6 C (97.8 F) 10/29/2017 11:59 AM CONCRETER Respiratory Rate 20 10/29/2017 11:59 AM CONCRETER Oxygen Saturation 99% 10/29/2017 11:59 AM CONCRETER Inhaled Oxygen Concentration - - Weight 61.2 kg (135 lb) 10/29/2017 11:59 AM CONCRETER Height 165.1 cm (5' 5) 10/29/2017 11:59 AM CONCRETER Body Mass Index 22.47 10/29/2017 11:59 AM CONCRETER Plan of Treatment Health Maintenance Due Date [...] topic Insurance AETNA AETNA AETNA Care Teams Rn Staff Relationship Specialty Start Date End Date Jay Metcalf MD [address] [place] [id number] PCP - General Family Medicine 10/29/17
--- NOTE | 2025-08-19 20:59 | PC.NURSE ---
pt visitor came to nurses station stating We have been in the room 3 hours and no one has done anything. Donna WEBSTER notified. No new orders at this time
--- NOTE | 2025-08-19 21:29 | PC.NURSE ---
pt refused vitals and requesting to speak with Donna WEBSTER
[2025-08-19 22:17] LABS: Hematocrit 44.6 % (37.0-47.0); Hemoglobin 15.1 g/dL (12.0-15.0); Immature Granulocyte Percent A 0.2 % (0-0.5); Lymphocytes Absolute Auto 2.27 K/mm3 (0.9-3.2); Mean Corpuscular HGB Conc 33.9 g/dl (32-36); Mean Corpuscular Hemoglobin 29.4 pg (26-34); Mean Corpuscular Volume 86.9 fl (80-100); Nucleated Red Blood Cells Absolute Auto 0.000 K/mm3 (0.0-0.012); Nucleated Red Blood Cells Perc 0.0 % (0.0-0.2); Platelet Count Result 374 k/mm3 (150-375); Red Blood Count 5.13 M/mm3 (4.2-5.4); White Blood Count 8.2 K/mm3 (4.5-10.0)
[2025-08-19 22:26] LABS: Alanine Aminotransferase 21 U/L (6-35); Albumin Level 5.0 g/dL (3.5-5.1); Alkaline Phosphatase 57 U/L (38-126); Anion Gap 12 mmol/L (4-12); Aspartate Amino Transferase 26 U/L (14-36); Bilirubin,Total 0.7 mg/dL (0.2-1.3); Blood Urea Nitrogen 21 mg/dL (7-17); Calcium 9.5 mg/dL (8.4-10.2); Carbon Dioxide 26 mmol/L (22-30); Chloride 102 mmol/L (98-107); Estimated CRCL calculation 93 ml/min; Estimated Glomerular Filt Rate > 60; Glucose 99 mg/dL (65-110); Potassium 3.7 mmol/L (3.4-5.0); Sodium 140 mmol/L (137-145); Total Protein 8.5 g/dL (6.3-8.2)
[2025-08-19 22:50] VITALS: BP 151/91; PULSE 93; RESP 17; TEMP 36.8; O2SAT 99
[2025-08-19 22:52] VITALS: BP 151/91; PULSE 93; RESP 17; TEMP 36.8; O2SAT 99
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
== END 2025-08-19 22:54 | disposition home or self-care (01) ==
PROVIDERS: PCP Family Medicine
DX: R20.2 Paresthesia of skin (principal); E11.9 Type 2 diabetes mellitus without complications; D51.9 Vitamin B12 deficiency anemia, unspecified; D50.9 Iron deficiency anemia, unspecified; Z86.16 Personal history of COVID-19; Z90.49 Acquired absence of other specified parts of digestive tract; Z77.22 Contact with and (suspected) exposure to environmental tobacco smoke (acute) (chronic); Z79.85 Long-term (current) use of injectable non-insulin antidiabetic drugs; Z79.84 Long term (current) use of oral hypoglycemic drugs; Z79.4 Long term (current) use of insulin; Z79.899 Other long term (current) drug therapy
CPT/HCPCS: 36415; 80053; 82948; 85025; 99283